=== PATIENT | female | born 1985 ===

== ENCOUNTER 2018-07-28 09:31 | Emergency (ER) | payer OTHER ==
[~2018-07-28] VITALS: Ht 152.4 cm; Wt 115.7 kg
[~2018-07-28 09:31] MED LIST: CIPRO500 MG PO; DULERA 100 MCG/13 GM; METFORMIN HCL500 MG PO; METRONIDAZOLE500 MG PO; OMEPRAZOLE20 M1 PO; SINGULAIR4 MG; TUSSIONEX PENNKI5 ML PO
== END 2018-07-28 14:37 | disposition home or self-care (01) ==
LOC: ER 09:31
DX: R73.9 Hyperglycemia, unspecified (principal)

== ENCOUNTER 2019-09-07 07:03 | Emergency (ER) | payer OTHER ==
[~2019-09-07] VITALS: Ht 157.5 cm; Wt 104.3 kg
[2019-09-07] MEDS ORDERED: METFORMIN HCL500 M4 PO (07:17)
[2019-09-07] MEDS ORDERED: PROAIR HFA8.5 GM IH (07:19)
== END 2019-09-07 13:11 | disposition home or self-care (01) ==
LOC: ER 07:03
DX: K57.32 Diverticulitis of large intestine without perforation or abscess without bleeding (principal); R10.12 Left upper quadrant pain; R10.32 Left lower quadrant pain